=== PATIENT | female | born 1995 | race Caucasian/White ===

== ENCOUNTER 2023-02-05 | Inpatient (IN) | payer BC ==
[~2023-02-05] VITALS: Ht 160 cm; Wt 96.2 kg
[2023-02-05 00:40] LABS: HEMATOCRIT 33.3 % (35.0-50.0); HEMOGLOBIN 11.1 g/dL (12.0-18.0); MCH 27.3 (27-36); MCHC 33.4 g/dl (30-36); MCV 81.6 fl (81-99); RBC 4.09 M/ul (4.3-5.7)
[2023-02-05 01:16] LABS: ABO AB; ANTIBODY SCREEN NEGATIVE; RH POSITIVE
[2023-02-05 01:31] LABS: INFLUENZA B NAA NEGATIVE (NEGATIVE); RESPIRATORY SYNCYTIAL VIR NAA NEGATIVE (NEGATIVE)
[2023-02-05 01:41] VITALS: BP 123/57
[2023-02-05 02:15] LABS: AMPHETAMINES, URINE NEGATIVE (NEGATIVE); BARBITURATES, URINE NEGATIVE (NEGATIVE); BENZODIAZEPINE, URINE NEGATIVE (NEGATIVE); BUPRENORPHINE, URINE NEGATIVE (NEGATIVE); CANNABINOID, URINE NEGATIVE (NEGATIVE); COCAINE, URINE NEGATIVE (NEGATIVE); ECSTASY, URINE NEGATIVE (NEGATIVE); FENTANYL, URINE NEGATIVE (NEGATIVE); METHADONE, URINE NEGATIVE (NEGATIVE); OPIATES, URINE NEGATIVE (NEGATIVE); OXYCODONE, URINE NEGATIVE (NEGATIVE); PHENCYCLIDINE, URINE NEGATIVE (NEGATIVE)
--- NOTE | 2023-02-05 12:18 | PR ---
[facility] [address] [facility] [place] [place] [address] Signed Progress Notes IP Datetime Report Generated by CPN: 02/05/2023 12:18 PROGRESS NOTES: [id number] Impression: Normal Progression of Labor; Reassuring Heart Rate Procedures: Artificial ROM; Sterile Vag Exam Plan: Continue Present Management Informed Consent Obtain: Vaginal Delivery VITAL SIGNS: [id number] Vital Signs: Reviewed; Within Normal Limits EXAM: [id number] Dilatation: 3.0 Effacement: 60 Station: -3 Contractions: q 3-4 min MEMBRANES: [id number] Comments: Pt seen and examined. Doing well. Cervix ripe and discussed AROM. vertex well applied and pt gives verbal consent. AROM for moderate amount of clear fluid. Mother and baby tolerated well. Will monitor labor progress FETUS A: [id number] FHR Baseline: 130 Variability: Moderate 6-25bpm Accelerations: 15X15 Decelerations: None FHR Category: Category I Comments on Fetus A: No evidence of metabolic acidosis. FETUS B: [id number] Signing Physician: Kenny Vega DO Copies: ~ *Electronically Signed* 02/05/23 1218 KENNY VEGA (JOHNNIE) DO PATIENT NAME: BRIDGETT ALVARADO PROGRESS NOTE DATE OF : 95 PHYSICIAN: KENNY VEGA (JD) DO RPT #: [id number] REPORT IS CONFIDENTIAL AND NOT TO BE RELEASED WITHOUT AUTHORIZATION
--- NOTE | 2023-02-05 17:53 | PR ---
[facility] [address] [place], [place] [address] Signed Progress Notes IP Datetime Report Generated by CPN: 02/05/2023 17:52 PROGRESS NOTES: [id number] Impression: Normal Progression of Labor; Reassuring Heart Rate Procedures: Intrauterine Pressure Catheter; Sterile Vag Exam Plan: Continue Present Management Other Plans: Consider augmentation if indicated Informed Consent Obtain: Vaginal Delivery VITAL SIGNS: [id number] Vital Signs: Reviewed; Within Normal Limits EXAM: [id number] Dilatation: 3.5 Effacement: 75 Station: -3 Contractions: q 3 min MEMBRANES: [id number] Comments: Pt seen and examined. Doing well. Comfortable w/ epidural. Reviewed slow cervical change and discussed adequate pelvis and estimated weight. Reviewed contractions and recommended IUPC. Pt agrees and IUPC placed w/out difficulty. Will augment w/ pitocin if indicated. All questions answered. FETUS A: [id number] FHR Baseline: 130 Variability: Moderate 6-25bpm Accelerations: 15X15 Decelerations: None FHR Category: Category I Comments on Fetus A: No evidence of metabolic acidosis. FETUS B: [id number] Signing Physician: Kenny Vega DO Copies: ~ *Electronically Signed* 02/05/23 4046 KENNY VEGA (JOHNNIE) DO PATIENT NAME: BRIDGETT ALVARADO PROGRESS NOTE DATE OF : 95 PHYSICIAN: KENNY VEGA (JD) DO RPT #: [id number] REPORT IS CONFIDENTIAL AND NOT TO BE RELEASED WITHOUT AUTHORIZATION
--- NOTE | 2023-02-05 20:13 | PR ---
[facility] [address] [place], [place] [address] Signed Progress Notes IP Datetime Report Generated by CPN: 02/05/2023 20:13 PROGRESS NOTES: [id number] Impression: Normal Progression of Labor; Reassuring Heart Rate Procedures: Sterile Vag Exam Plan: Continue Present Management Other Plans: Consider augmentation if indicated Informed Consent Obtain: Vaginal Delivery VITAL SIGNS: [id number] Vital Signs: Reviewed; Within Normal Limits EXAM: [id number] Dilatation: 4.0 Effacement: 60 Station: -3 Contractions: q 4-5 min, borderline adequacy MEMBRANES: [id number] Comments: Pt seen and examined. Doing well Comfortable w/ epidural. Borderline adequacy of contractions on pitocin. FHT overall reassuring. Episodes of minimal variability and variable decelerations. Will continue to monitor. Consider amnioinfusion. Reviewed OT position and will attempt materal position changes to influence OA positioning. All questions answered. FETUS A: [id number] FHR Baseline: 130 Variability: Minimal - >Undetectable to <=5bpm Accelerations: 15X15 Decelerations: Variable FHR Category: Category II Comments on Fetus A: No evidence of metabolic acidosis. FETUS B: [id number] Signing Physician: Kenny Vega DO Copies: ~ *Electronically Signed* 02/05/232012 KENNY VEGA (JOHNNIE) DO PATIENT NAME: BRIDGETT ALVARADO PROGRESS NOTE DATE OF : 95 PHYSICIAN: KENNY VEGA (JD) DO RPT #: [id number] REPORT IS CONFIDENTIAL AND NOT TO BE RELEASED WITHOUT AUTHORIZATION
--- NOTE | 2023-02-05 22:47 | PR ---
[facility] [address] [facility] [place], [place] [address] Signed Progress Notes IP Datetime Report Generated by CPN: 02/05/2023 22:47 PROGRESS NOTES: [id number] Impression: Normal Progression of Labor; Reassuring Heart Rate Procedures: Sterile Vag Exam Plan: Continue Present Management; Augmentation Other Plans: Consider augmentation if indicated Informed Consent Obtain: Vaginal Delivery VITAL SIGNS: [id number] Vital Signs: Reviewed; Within Normal Limits EXAM: [id number] Dilatation: 5.0 Effacement: 70 Station: -3 Contractions: Irregular MEMBRANES: [id number] Comments: Pt seen and examined. Inadequate contractions and LOT position. FHT overall very reassuring. Continue positional change and pitocin per protocol. Will continue to monitor FETUS A: [id number] FHR Baseline: 130 Variability: Moderate 6-25bpm Accelerations: 15X15 Decelerations: Variable FHR Category: Category I Comments on Fetus A: No evidence of metabolic acidosis. FETUS B: [id number] Signing Physician: Kenny Vega DO Copies: ~ *Electronically Signed* 02/05/23 0583 KENNY VEGA (JOHNNIE) DO PATIENT NAME: BRIDGETT ALVARADO PROGRESS NOTE DATE OF : 95 PHYSICIAN: KENNY VEGA) DO RPT #: [id number] REPORT IS CONFIDENTIAL AND NOT TO BE RELEASED WITHOUT AUTHORIZATION
--- NOTE | 2023-02-06 03:09 | PR ---
[facility] [address] [place], [place] [address] Signed Progress Notes IP Datetime Report Generated by CPN: 02/06/2023 03:09 PROGRESS NOTES: [id number] Impression: Normal Progression of Labor Other Impressions: cat 2 tracing Procedures: Sterile Vag Exam Plan: Continue Present Management Other Plans: Discussed vs primary C/S Informed Consent Obtain: Risks, Benefits and Alternatives Discussed VITAL SIGNS: [id number] Vital Signs: Reviewed; Within Normal Limits EXAM: [id number] Dilatation: 8.0 Effacement: 80 Station: -1 Contractions: q 3-4 min MEMBRANES: [id number] Comments: Pt seen and examined. Continued slow progression of labor w/ LOT positioning and some molding noted. Episodes of moderate and episodes of minimal variability w/ some variable decelerations and occasional late decelerations. Reviewed progression of labor and FHT w/ pt. Discussed maternal position monitoring. Consider amnioinfusion or d/c pitocin if decelerations worsen. Discussed indications for if needed. After discussion risks/benefits w/ pt, she would like to continue trial of labor. Will monitor closely FETUS A: [id number] FHR Baseline: 130 Variability: Minimal - >Undetectable to <=5bpm Accelerations: 15X15 Decelerations: Late; Variable FHR Category: Category II Comments on Fetus A: No evidence of metabolic acidosis. FETUS B: [id number] Signing Physician: Kenny Vega DO Copies: ~ *Electronically Signed* 02/06/23 5539 KENNY VEGA (JOHNNIE) DO PATIENT NAME: BRIDGETT ALVARADO ANGEL PROGRESS NOTE DATE OF : 95 PHYSICIAN: KENNY VEGA (JD) DO RPT #: [id number] REPORT IS CONFIDENTIAL AND NOT TO BE RELEASED WITHOUT AUTHORIZATION
--- NOTE | 2023-02-06 05:37 | PR ---
[facility] [address] [facility] [place], [place] [address] Signed Progress Notes IP Datetime Report Generated by CPN: 02/06/2023 05:37 PROGRESS NOTES: [id number] Impression: Normal Progression of Labor; Reassuring Heart Rate Other Impressions: cat 2 tracing Procedures: Sterile Vag Exam Plan: Anticipate Vaginal Delivery Other Plans: Discussed vs primary C/S Informed Consent Obtain: Vaginal Delivery VITAL SIGNS: [id number] Vital Signs: Reviewed; Within Normal Limits EXAM: [id number] Dilatation: 10.0 Effacement: 100 Station: 1 Contractions: q 3-4 min MEMBRANES: [id number] Comments: Pt seen and examined. Doing well. Comfortable w/ contractions. FHT Cat 1 and pt now complete. Will start pushing. Discussed 2nd stage of labor. All questions answered FETUS A: [id number] FHR Baseline: 130 Variability: Moderate 6-25bpm Accelerations: 15X15 Decelerations: None FHR Category: Category I Comments on Fetus A: No evidence of metabolic acidosis. FETUS B: [id number] Signing Physician: Kenny Vega DO Copies: ~ *Electronically Signed* 02/06/23 0537 KENNY VEGA (JOHNNIE) DO PATIENT NAME: BRIDGETT ALVARADO PROGRESS NOTE DATE OF : 95 PHYSICIAN: KENNY VEGA (JD) DO RPT #: [id number] REPORT IS CONFIDENTIAL AND NOT TO BE RELEASED WITHOUT AUTHORIZATION
[2023-02-07 05:33] LABS: HEMATOCRIT 30.3 % (35.0-50.0); HEMOGLOBIN 10.1 g/dL (12.0-18.0); MCH 27.1 (27-36); MCHC 33.4 g/dl (30-36); RBC 3.74 M/ul (4.3-5.7); RDW 16.7 (10.5-15.0)
--- NOTE | 2023-02-07 07:45 | PR ---
[facility] [address] [facility] [place], [place] [address] Signed PP Progress Notes Datetime Report Generated by CPN: 02/07/2023 07:45 SUBJECTIVE: [id number] Pain: Within Normal Limits Vital Signs: [id number] Vital Signs: Reviewed; Within Normal Limits Cardiovascular: Not Done Respiratory: Not Done Abdomen/Uterus: Abnormal Lochia: Normal Vulva/Perineum: Not Done Breasts: Not Done CVA Tenderness: Not Done Extremities: Normal Incision: Not Applicable Progress: Normal Exam Comments: Fundus firm, NT @ U. H/H 10.1/30.3, WBC 14.2, plat 195k IMPRESSION/PLAN/PROCEDURES: [id number] Impression: Normal Progression Plan: Discharge Procedures: None Progress Notes: She is feeling well. She desires discharge today. Signing Physician: Alannah Montague MD Copies: ~ *Electronically Signed* 02/07/23 0745 ALANNAH MONTAGUE MD PATIENT NAME: BRIDGETT ALVARADO PROGRESS NOTE DATE OF : 95 PHYSICIAN: ALANNAH MONTAGUE MD RPT #: [id number] REPORT IS CONFIDENTIAL AND NOT TO BE RELEASED WITHOUT AUTHORIZATION
--- NOTE | 2023-02-07 11:03 | NUR ---
FAMILY IN ROOM. CONSENTED TO PRAYER. PRAYED FOR GOOD BEGINNINGS AND ONGOIN BLESSING.
== END 2023-02-07 12:55 | disposition home or self-care (01) | DRG 807 ==
LOC: FBC
PROVIDERS: ADMIT Obstetrics & Gynecology; ATTEND Obstetrics & Gynecology
PROC: 10E0XZZ Delivery of Products of Conception, External Approach (ICD-10-PCS; principal; 2023-02-06)
PROC: 10907ZC Drainage of Amniotic Fluid, Therapeutic from Products of Conception, Via Natural or Artificial Opening (ICD-10-PCS; 2023-02-06)
PROC: 10H07YZ Insertion of Other Device into Products of Conception, Via Natural or Artificial Opening (ICD-10-PCS; 2023-02-06)
PROC: 0HQ9XZZ Repair Perineum Skin, External Approach (ICD-10-PCS; 2023-02-06)
PROC: 3E0R3BZ Introduction of Anesthetic Agent into Spinal Canal, Percutaneous Approach (ICD-10-PCS; 2023-02-06)
PROC: 00HU33Z Insertion of Infusion Device into Spinal Canal, Percutaneous Approach (ICD-10-PCS; 2023-02-06)
DX: O76 Abnormality in fetal heart rate and rhythm complicating labor and delivery (principal); Z37.0 Single live birth; O70.0 First degree perineal laceration during delivery; Z3A.39 39 weeks gestation of pregnancy; Z11.52 Encounter for screening for COVID-19; O71.82 Other specified trauma to perineum and vulva; O99.214 Obesity complicating childbirth; Z88.0 Allergy status to penicillin; Z88.2 Allergy status to sulfonamides
CPT/HCPCS: 01960; 36415; 80307; 85027; 86850; 86900; 86901; 87502; A9270; J2590; J2795; J7121; U0002

== ENCOUNTER 2024-06-14 06:05 | Inpatient (IN) | payer OTHER ==
[~2024-06-14 06:05] MED LIST: CALCIUM CARBONATE 500 MG CHEW PO PRN; LACTATED RINGER'S 1,000 ML IV PRN; LACTATED RINGER'S 1,000 ML IV SCH; MAGNESIUM HYDROXIDE/AL HYDROX 30 ML CUP PO PRN; OXYTOCIN/0.9 % SODIUM CHLORIDE 500 ML IV SCH
[2024-06-14] MEDS ORDERED: OXYTOCIN/0.9 % SODIUM CHLORIDE 30 UNITS/500 ML BAG IV SCH (06:15)
[2024-06-14 06:48] LABS: HEMATOCRIT 34.3 % (35.0-50.0); HEMOGLOBIN 11.7 g/dL (12.0-18.0); MCH 28.4 (27-36); MCHC 34.1 g/dl (30-36); MCV 83.3 fl (81-99); RBC 4.12 M/ul (4.3-5.7); RDW 16.5 (10.5-15.0)
[2024-06-14 06:52] VITALS: BP 114/60
[2024-06-14 07:13] LABS: AMPHETAMINES, URINE NEGATIVE (NEGATIVE); BARBITURATES, URINE NEGATIVE (NEGATIVE); BENZODIAZEPINE, URINE NEGATIVE (NEGATIVE); BUPRENORPHINE, URINE NEGATIVE (NEGATIVE); CANNABINOID, URINE NEGATIVE (NEGATIVE); COCAINE, URINE NEGATIVE (NEGATIVE); ECSTASY, URINE NEGATIVE (NEGATIVE); FENTANYL, URINE NEGATIVE (NEGATIVE); METHADONE, URINE NEGATIVE (NEGATIVE); OPIATES, URINE NEGATIVE (NEGATIVE); OXYCODONE, URINE NEGATIVE (NEGATIVE); PHENCYCLIDINE, URINE NEGATIVE (NEGATIVE)
[2024-06-14 07:27] LABS: ABO AB; ANTIBODY SCREEN NEGATIVE; RH POSITIVE
[2024-06-14] MEDS ORDERED: OXYTOCIN/0.9 % SODIUM CHLORIDE 500 ML IV SCH (08:45)
[2024-06-14] MEDS ORDERED: fentaNYL citrate 100 MCG/2 ML VIAL ONE ×2 (14:11→21:42)
[2024-06-14] MEDS ORDERED: ROPIVACAINE 0.2% 200 ML BAG ONE (14:11)
[2024-06-14] MEDS ORDERED: LACTATED RINGER'S 2,000 ML IV ONE (15:00)
[2024-06-14] MEDS ORDERED: LACTATED RINGER'S 500 ML IV PRN (15:00)
[2024-06-14] MEDS ORDERED: ROPIVACAINE 0.2% 200 ML BAG EPIDURAL SCH (15:00)
[2024-06-14] MEDS ORDERED: ePHEDrine sulfate 5 MG/ML SYRINGE IV PRN (15:00)
[2024-06-14] MEDS ORDERED: dexmedeTOMIDine HCl 200 MCG/2 ML VIAL ONE (20:11)
[2024-06-14] MEDS ORDERED: LIDOCAINE HCL 2% 5 ML SDV ONE (20:12)
[2024-06-14] MEDS ORDERED: Ropivacaine HCl 0.5% 30 ML VIAL ONE (20:12)
[2024-06-14] MEDS ORDERED: ePHEDrine KIT FOR FBC IV ONE (22:51)
[2024-06-15] MEDS ORDERED: ACETAMINOPHEN 325 MG TAB PO PRN (04:15)
[2024-06-15] MEDS ORDERED: BENZOCAINE 60 ML AEROSOL TOP PRN (04:15)
[2024-06-15] MEDS ORDERED: LIDOCAINE 2% VISCOUS 6 ML SYR TOP ONE ×2 (04:15)
[2024-06-15] MEDS ORDERED: MAGNESIUM HYDROXIDE/AL HYDROX 30 ML CUP PO PRN (04:15)
[2024-06-15] MEDS ORDERED: OXYTOCIN/0.9 % SODIUM CHLORIDE 500 ML IV SCH (04:15)
[2024-06-15] MEDS ORDERED: HYDROCORTISONE ACETATE 25 MG SUPP PR PRN (04:15)
[2024-06-15] MEDS ORDERED: WITCH HAZEL/GLYCERIN 1 EA PAD TOP PRN (04:15)
[2024-06-15] MEDS ORDERED: IBUPROFEN 600 MG TAB PO PRN (04:15)
[2024-06-15] MEDS ORDERED: MAGNESIUM HYDROXIDE 30 ML UDC PO PRN (04:15)
[2024-06-15] MEDS ORDERED: CALCIUM CARBONATE 500 MG CHEW PO PRN (04:15)
[2024-06-15] MEDS ORDERED: SENNOSIDES/DOCUSATE 1 EA TAB PO SCH (09:00)
== END 2024-06-16 10:40 | disposition home or self-care (01) | DRG 807 ==
LOC: FBC 06:05
PROVIDERS: Obstetrics & Gynecology; ADMIT Advanced Practice Midwife; ATTEND Advanced Practice Midwife
PROC: 10E0XZZ Delivery of Products of Conception, External Approach (ICD-10-PCS; principal; 2024-06-14)
PROC: 3E033VJ Introduction of Other Hormone into Peripheral Vein, Percutaneous Approach (ICD-10-PCS; 2024-06-14)
PROC: 3E0R3BZ Introduction of Anesthetic Agent into Spinal Canal, Percutaneous Approach (ICD-10-PCS; 2024-06-14)
PROC: 00HU33Z Insertion of Infusion Device into Spinal Canal, Percutaneous Approach (ICD-10-PCS; 2024-06-14)
DX: O99.02 Anemia complicating childbirth (principal); Z37.0 Single live birth; Z3A.39 39 weeks gestation of pregnancy; Z88.0 Allergy status to penicillin; Z90.49 Acquired absence of other specified parts of digestive tract; Z88.1 Allergy status to other antibiotic agents; Z88.5 Allergy status to narcotic agent; Z88.2 Allergy status to sulfonamides
CPT/HCPCS: 01960; 36415; 80307; 85027; 86850; 86900; 86901; A9270; J2003; J2795; J3010; J7121